=== PATIENT | female | born 1940 | race Caucasian/White ===

== ENCOUNTER 2021-09-07 09:51 | Emergency (ER) | payer MEDICARE ==
[2021-09-07 09:59] VITALS: RESP 18; TEMP 98.4
[2021-09-07] MEDS ORDERED: SODIUM CHLORIDE 0.9% 500 ML 500 ML IV STA (10:10)
--- NOTE | 2021-09-07 10:15 | ED ---
General Adult HPI - General Chief complaint: Nausea/Vomiting/Diarrhea Stated complaint: Diarrhea Time Seen by Provider: 09/07/21 10:05 Source: patient, RN notes reviewed Mode of arrival: ambulatory Limitations: no limitations - History of Present Illness Initial comments: Well-appearing 81-year-old female, alert and oriented 4, presents with complaints of diarrhea that started yesterday. She states that she had multiple episodes, less than 10 yesterday and a couple today. She described it as mucousy, denies any blood or melena. She states it feels like when she had C diff in the past. She denies any nausea or vomiting, no fevers. She describes the abdominal pain as cramping and diffuse. She states that she does smoke marijuana daily. -: days(s) (2) Radiation: abdomen Severity scale (1-10): 0 Quality: other (cramping) Consistency: intermittent, now resolved Associated Symptoms: denies other symptoms Treatments Prior to Arrival: none - Related Data Home Medications Medication Instructions Recorded Confirmed Gabapentin 300 mg PO TID 03/04/20 09/07/21 Allergies Allergy/AdvReac Type Severity Reaction Status Date / Time prochlorperazine edisylate Allergy seizure Verified 09/07/21 12:30 [From Compazine] prochlorperazine maleate Allergy seizure Verified 09/07/21 12:30 [From Compazine] Review of Systems ROS Statement: Those systems with pertinent positive or pertinent negative responses have been documented in the HPI. ROS Other: All systems not noted in ROS Statement are negative. Past Medical History Past Medical History: Diabetes Mellitus, Hypertension, Thyroid Disorder Additional Past Medical History / Comment(s): c-dif History of Any Multi-Drug Resistant Organisms: None Reported Past Surgical History: Back Surgery, Orthopedic Surgery Additional Past Surgical History / Comment(s): lap band, partial thyroidectomy Past Psychological History: No Psychological Hx Reported Smoking Status: Former smoker Past Alcohol Use History: None Reported Past Drug Use History: Marijuana General Exam - General Exam Comments Initial Comments: 81-year-old female presents with diarrhea that started yesterday. Described it as mucousy, denies any blood or melena. She states it feels like when she had C diff in the past. She denies any nausea or vomiting, no fevers. Limitations: no limitations General appearance: alert, in no apparent distress Head exam: Present: atraumatic Eye exam: Present: EOMI ENT exam: Present: mucous membranes moist Neck exam: Present: normal inspection. Absent: tenderness, meningismus Respiratory exam: Present: normal lung sounds bilaterally. Absent: respiratory distress, wheezes, rales, rhonchi, stridor, chest wall tenderness, accessory muscle use Cardiovascular Exam: Present: regular rate, normal heart sounds GI/Abdominal exam: Present: soft, normal bowel sounds. Absent: distended, tenderness, guarding, rebound, rigid Extremities exam: Present: normal capillary refill. Absent: pedal edema Back exam: Present: normal inspection. Absent: tenderness, CVA tenderness (R), CVA tenderness (L), rash noted Neurological exam: Present: alert, oriented X3 Psychiatric exam: Present: normal affect, normal mood Skin exam: Present: warm, dry, normal color. Absent: rash, cyanosis, diaphoretic, pallor Course Vital Signs 09/07/21 09/07/21 09:56 12:00 Temperature 98.4 F Pulse Rate 93 92 Respiratory 18 18 Rate Blood Pressure 125/84 170/94 O2 Sat by Pulse 98 95 Oximetry Medical Decision Making - Medical Decision Making 81-year-old female presents with complaints of diarrhea that started yesterday. Described it as mucousy, denies any blood or melena. She states it feels like when she had C diff in the past. There is no evidence of leukocytosis. Hemoglobin and hematocrit are stable. BUN and creatinine are slightly elevated. Urinalysis is negative for infection C. diff is negative. X-ray shows bilateral nephrolithiasis. Surgical clips from cholecystectomy. Patient continued to have abdominal pain and diarrhea CT was ordered. There are suboptimal assessment pelvic structures related to artifact from the right hip prosthesis Ureterohydronephrosis is noted. There is nonspecific wall thickening of the rectum. Colonic diverticulosis evident within the sigmoid colon. Normal appendix. Patient states that she has several more episodes of diarrhea in the emergency room but no nausea vomiting or fevers. This may be a viral illness and patient was directed to follow up with her primary care doctor next week. Vital signs are stable. Abdomen is soft and minimally tender. She was directed to return to the emergency room with any new or concerning symptoms including increased pain, persistent nausea vomiting or fevers. Case discussed with Dr. Guerra. - Lab Data Result diagrams: 09/07/21 10:34 09/07/21 10:34 Lab Results 09/07/21 09/07/21 09/07/21 Range/Units 10:34 10:34 11:08 WBC 9.8 (3.8-10.6) k/uL RBC 4.30 (3.80-5.40) m/uL Hgb 13.1 (11.4-16.0) gm/dL Hct 40.4 (34.0-46.0) % MCV 93.8 (80.0-100.0) fL MCH 30.5 (25.0-35.0) pg MCHC 32.5 (31.0-37.0) g/dL RDW 13.8 (11.5-15.5) % Plt Count 450 (150-450) k/uL MPV 7.4 Neutrophils % 78 % Lymphocytes % 17 % Monocytes % 2 % Eosinophils % 1 % Basophils % 1 % Neutrophils # 7.7 (1.3-7.7) k/uL Lymphocytes # 1.7 (1.0-4.8) k/uL Monocytes # 0.2 (0-1.0) k/uL Eosinophils # 0.1 (0-0.7) k/uL Basophils # 0.1 (0-0.2) k/uL Sodium 137 (137-145) mmol/L Potassium 4.2 (3.5-5.1) mmol/L Chloride 106 (98-107) mmol/L Carbon Dioxide 23 (22-30) mmol/L Anion Gap 8 mmol/L BUN 18 H (7-17) mg/dL Creatinine 1.23 H (0.52-1.04) mg/dL Est GFR (CKD-EPI)AfAm 48 (>60 ml/min/1.73 sqM) Est GFR (CKD-EPI)NonAf 42 (>60 ml/min/1.73 sqM) Glucose 158 H (74-99) mg/dL Calcium 9.0 (8.4-10.2) mg/dL Total Bilirubin 0.9 (0.2-1.3) mg/dL AST 19 (14-36) U/L ALT 11 (4-34) U/L Alkaline Phosphatase 93 (38-126) U/L Total Protein 7.9 (6.3-8.2) g/dL Albumin 4.2 (3.5-5.0) g/dL Amylase 67 (30-110) U/L Lipase 34 (23-300) U/L Urine Color Urine Appearance (Clear) Urine pH (5.0-8.0) Ur Specific [place] (1.001-1.035) Urine Protein (Negative) Urine Glucose (UA) (Negative) Urine Ketones (Negative) Urine Blood (Negative) Urine Nitrite (Negative) Urine Bilirubin (Negative) Urine Urobilinogen (<2.0) mg/dL Ur Leukocyte Esterase (Negative) Urine RBC (0-5) /hpf Urine WBC (0-5) /hpf Ur Squamous Epith Cells (0-4) /hpf Urine Mucus (None) /hpf C. difficile (EIA) Intrp Negative (Negative) 09/07/21 Range/Units 16:18 WBC (3.8-10.6) k/uL RBC (3.80-5.40) m/uL Hgb (11.4-16.0) gm/dL Hct (34.0-46.0) % MCV (80.0-100.0) fL MCH (25.0-35.0) pg MCHC (31.0-37.0) g/dL RDW (11.5-15.5) % Plt Count (150-450) k/uL MPV Neutrophils % % Lymphocytes % % Monocytes % % Eosinophils % % Basophils % % Neutrophils # (1.3-7.7) k/uL Lymphocytes # (1.0-4.8) k/uL Monocytes # (0-1.0) k/uL Eosinophils # (0-0.7) k/uL Basophils # (0-0.2) k/uL Sodium (137-145) mmol/L Potassium (3.5-5.1) mmol/L Chloride (98-107) mmol/L Carbon Dioxide (22-30) mmol/L Anion Gap mmol/L BUN (7-17) mg/dL Creatinine (0.52-1.04) mg/dL Est GFR (CKD-EPI)AfAm (>60 ml/min/1.73 sqM) Est GFR (CKD-EPI)NonAf (>60 ml/min/1.73 sqM) Glucose (74-99) mg/dL Calcium (8.4-10.2) mg/dL Total Bilirubin (0.2-1.3) mg/dL AST (14-36) U/L ALT (4-34) U/L Alkaline Phosphatase (38-126) U/L Total Protein (6.3-8.2) g/dL Albumin (3.5-5.0) g/dL Amylase (30-110) U/L Lipase (23-300) U/L Urine Color Yellow Urine Appearance Clear (Clear) Urine pH 6.0 (5.0-8.0) Ur Specific [place] 1.016 (1.001-1.035) Urine Protein Trace H (Negative) Urine Glucose (UA) Negative (Negative) Urine Ketones Trace H (Negative) Urine Blood Moderate H (Negative) Urine Nitrite Negative (Negative) Urine Bilirubin Negative (Negative) Urine Urobilinogen <2.0 (<2.0) mg/dL Ur Leukocyte Esterase Negative (Negative) Urine RBC 49 H (0-5) /hpf Urine WBC 1 (0-5) /hpf Ur Squamous Epith Cells <1 (0-4) /hpf Urine Mucus Rare H (None) /hpf C. difficile (EIA) Intrp (Negative) Disposition Clinical Impression: Diarrhea, Elevated serum creatinine Disposition: HOME SELF-CARE Condition: Good Instructions (If sedation given, give patient instructions): Acute Diarrhea (ED) Additional Instructions: Increase your fluid intake. Follow-up with your primary care doctor next week. Notify your doctor that your BUN and creatinine levels were elevated today. Your C. diff test was negative today. Return to the emergency room with any new or concerning symptoms including fevers, increased abdominal pain or persistent vomiting. Is patient prescribed a controlled substance at d/c from ED?: No Referrals: None,Stated [Primary Care Provider] - 1-2 days Time of Disposition: 17:12
[2021-09-07 10:48] LABS: Basophils # (A) 0.1 k/uL (0-0.2); Basophils % (A) 1 %; Eosinophils # (A) 0.1 k/uL (0-0.7); Eosinophils % (A) 1 %; HCT 40.4 % (34.0-46.0); HGB 13.1 gm/dL (11.4-16.0); Lymphocytes # (A) 1.7 k/uL (1.0-4.8); Lymphocytes % (A) 17 %; MCH 30.5 pg (25.0-35.0); MCHC 32.5 g/dL (31.0-37.0); MCV 93.8 fL (80.0-100.0); Mean Platelet Volume 7.4; Monocytes # (A) 0.2 k/uL (0-1.0); Monocytes % (A) 2 %; Neutrophils # (A) 7.7 k/uL (1.3-7.7); Neutrophils % (A) 78 %; Platelet Count 450 k/uL (150-450); RDW 13.8 % (11.5-15.5); WBC 9.8 k/uL (3.8-10.6)
--- NOTE | 2021-09-07 10:55 | XR ---
EXAMINATION TYPE: XR KUB DATE OF EXAM: 09/07/2021 COMPARISON: NONE HISTORY: Pain TECHNIQUE: One view abdominal series FINDINGS: Arthropathy of the left. Vascular calcifications noted. There are multiple punctate calcifications ov erlying both kidneys compatible with renal calculi. Surgical clips in the gallbladder fossa. Hypertro phic and degenerative change of the spine. Postsurgical change right hip with soft tissue ossificatio n seen bilaterally. IMPRESSION: 1. Nonspecific abdomen with no obstruction. 2. Bilateral nephrolithiasis
[2021-09-07 11:00] LABS: Albumin 4.2 g/dL (3.5-5.0); Potassium 4.2 mmol/L (3.5-5.1); Total Bilirubin 0.9 mg/dL (0.2-1.3); Total Protein 7.9 g/dL (6.3-8.2)
--- NOTE | 2021-09-07 13:27 | CT ---
EXAMINATION TYPE: CT abdomen pelvis wo con DATE OF EXAM: 09/07/2021 COMPARISON: No previous abdominal CT scan is available for comparison HISTORY: Lower pelvic pain with bladder leakage CT DLP: 741.8 mGycm Automated exposure control for dose reduction was used. TECHNIQUE: Helical acquisition of images was performed from the lung bases through the pelvis. No IV contrast administration. FINDINGS: LUNG BASES: Mild right posterior basal pulmonary reticulations and minimal fibrotic changes. Cardiome cindy with coronary arterial calcifications. LIVER/GB: Central segment 7 tiny calcifications. No other definite hepatic focal lesion identified by this nonenhanced CT scan. Previous cholecystectomy. PANCREAS: Atrophic with fatty infiltration. SPLEEN: No significant abnormality is seen. ADRENALS: Thickened adrenals, unchanged since 2011 CT chest. KIDNEYS: Large right lower pole renal cyst measuring 6.4 cm without gross suspicious feature. Suspect ed tiny hemorrhagic/proteinaceous cyst at the upper pole of the right kidney measuring 5 mm, suboptim ally assessed by this CT scan. Bilateral renal vascular calcifications. No hydroureter or hydronephro sis. Questionable few millimetric nonobstructing calculi in the left kidney. FREE AIR: No free air is visualized RETROPERITONEAL ADENOPATHY: None visualized REPRODUCTIVE ORGANS: Previous hysterectomy. No gross adnexal mass. URINARY BLADDER: Obscured by artifacts from right hip prosthesis. PELVIC ADENOPATHY: None visualized. OSSEOUS STRUCTURES: Right hip arthroplasty obscuring adjacent pelvic structures. Diffuse osteopenia. Marked degenerative changes at L5-S1 level. Chronic healed fracture at S4-5 segments. BOWEL: Surgical clips are seen at the superior aspect of the gastric fundus, otherwise unremarkable undistended stomach, duodenum and small bowel. Nonspecific wall thickening of the rectum. Colonic div erticulosis most evident involving the sigmoid colon. Sigmoid colon wall thickening, nonspecific. Rec ommend correlation with colonoscopy results. Normal appendix. OTHER: Extensive arterial atherosclerotic calcifications. No sizable ascites. Pelvic fluid or other a bnormality cannot be excluded. Small fat-containing supraumbilical hernia. IMPRESSION: Suboptimal assessment of the pelvic structures including the urinary bladder due to artifacts from th e right hip prosthesis. No hydroureter or hydronephrosis. Other findings as detailed above.
[2021-09-07 13:29] VITALS: BP 170/94; PULSE 92
[2021-09-07 16:47] LABS: Appearance,Urine Clear (Clear); Bilirubin,Urine Negative (Negative); Blood,Urine Moderate (Negative); Color,Urine Yellow; Glucose,Urine (UA) Negative (Negative); Ketones,Urine Trace (Negative); Leukocyte Esterase,Urine Negative (Negative); Mucus,Urine Rare /hpf; Nitrite,Urine Negative (Negative); Protein,Urine Trace (Negative); RBC,Urine 49 /hpf (0-5); Specific Gravity,Urine 1.016 (1.001-1.035); Squamous Epithelial Cell,Urine <1 /hpf (0-4); Urobilinogen,Urine <2.0 mg/dL (<2.0); WBC,Urine 1 /hpf (0-5)
== END 2021-09-07 17:30 | disposition home or self-care (01) ==
LOC: EC 09:51
DX: R19.7 Diarrhea, unspecified (principal); N20.0 Calculus of kidney; E11.9 Type 2 diabetes mellitus without complications; I10 Essential (primary) hypertension; F12.90 Cannabis use, unspecified, uncomplicated; Z87.891 Personal history of nicotine dependence; Z79.899 Other long term (current) drug therapy
CPT/HCPCS: 36415; 74018; 74176; 80053; 81001; 82150; 83690; 85025; 87324; 99284

== ENCOUNTER 2021-12-12 20:15 | Observation (INO) | payer MEDICARE, BC ==
[2021-12-12 20:32] VITALS: RESP 18; TEMP 98.5
[2021-12-13] MEDS ORDERED: SODIUM CHLORIDE 0.9% 1,000 ML IV STA (01:07)
[2021-12-13] MEDS ORDERED: VANCOMYCIN IV PER PHARMACY 1 EACH MISC MISCELLANE PRN (01:07)
[2021-12-13] MEDS ORDERED: NALOXONE 0.4 MG/ML 1 ML VIAL IV PRN (01:09)
[2021-12-13] MEDS ORDERED: ONDANSETRON 4 MG/2 ML VIAL IVP PRN (01:09)
[2021-12-13] MEDS ORDERED: MORPHINE SULFATE 4 MG/ML SYRINGE IV PRN (01:09)
[2021-12-13] MEDS ORDERED: VANCOMYCIN 1,500 MG in SODIUM CHLORIDE 0.9% 250 ML IVPB STA (01:14)
--- NOTE | 2021-12-13 01:14 | ED ---
Skin/Abscess/FB HPI - General Chief complaint: Skin/Abscess/Foreign Body Stated complaint: Infection Left Leg Time Seen by Provider: 12/13/21 00:57 Source: patient, RN notes reviewed, old records reviewed Mode of arrival: wheelchair Limitations: no limitations - History of Present Illness Initial comments: This is a 81-year-old female to the emergency room for evaluation. Patient is today for evaluation of left lower extremity pain and swelling redness and tenderness. Patient of fall downstairs recently with significant hematoma of left leg which tapers has now become painful and draining. Patient is without fever. MD complaint: rash, abscess/boil -: days(s) Location: LLE Severity: moderate Quality: burning, aching Consistency: constant Improves with: none Worsens with: none Context: none (Fall with injury) Associated symptoms: denies other symptoms Treatments Prior to Arrival: bandages - Related Data Home Medications Medication Instructions Recorded Confirmed Gabapentin 300 mg PO TID 03/04/20 09/07/21 Allergies Allergy/AdvReac Type Severity Reaction Status Date / Time prochlorperazine edisylate Allergy seizure Verified 12/12/21 20:31 [From Compazine] prochlorperazine maleate Allergy seizure Verified 12/12/21 20:31 [From Compazine] Review of Systems ROS Statement: Those systems with pertinent positive or pertinent negative responses have been documented in the HPI. ROS Other: All systems not noted in ROS Statement are negative. Past Medical History Past Medical History: Diabetes Mellitus, Hypertension, Thyroid Disorder Additional Past Medical History / Comment(s): c-dif History of Any Multi-Drug Resistant Organisms: None Reported Past Surgical History: Back Surgery, Orthopedic Surgery Additional Past Surgical History / Comment(s): lap band, partial thyroidectomy Past Psychological History: No Psychological Hx Reported Smoking Status: Former smoker Past Alcohol Use History: None Reported Past Drug Use History: Marijuana General Exam Limitations: no limitations General appearance: alert, in no apparent distress Head exam: Present: atraumatic, normocephalic, normal inspection Eye exam: Present: normal appearance, PERRL, EOMI. Absent: scleral icterus, conjunctival injection, periorbital swelling ENT exam: Present: normal exam, mucous membranes moist Neck exam: Present: normal inspection. Absent: tenderness, meningismus, lymphadenopathy Respiratory exam: Present: normal lung sounds bilaterally. Absent: respiratory distress, wheezes, rales, rhonchi, stridor Cardiovascular Exam: Present: regular rate, normal rhythm, normal heart sounds. Absent: systolic murmur, diastolic murmur, rubs, gallop, clicks GI/Abdominal exam: Present: soft, normal bowel sounds. Absent: distended, tenderness, guarding, rebound, rigid Extremities exam: Present: normal inspection, full ROM, normal capillary refill. Absent: tenderness, pedal edema, joint swelling, calf tenderness Back exam: Present: normal inspection Neurological exam: Present: alert, oriented X3, CN II-XII intact Psychiatric exam: Present: normal affect, normal mood Skin exam: Present: warm, dry, intact, normal color. Absent: rash Course Vital Signs 12/12/21 20:28 Temperature 98.5 F Pulse Rate 73 Respiratory 18 Rate Blood Pressure 148/64 O2 Sat by Pulse 99 Oximetry - Reevaluation(s) Reevaluation #1: 12/13/21 01:13 Medical record is reviewed Reevaluation #2: 12/13/21 01:13 Patient no significant distress or pain Reevaluation #3: 12/13/21 01:13 Patient informed results and questions answered - Consultations Consultation #1: Spoke with sound physicians will admit this patient Medical Decision Making - Medical Decision Making 81 female will be admitted for significant cellulitis related to hematoma trauma the left lower extremity. Patient will be admitted for wound care and IV antibiotics Disposition Clinical Impression: Left leg cellulitis, Hematoma of left lower leg, Fall Disposition: ADMITTED IP TO THIS HOSP Condition: Good Is patient prescribed a controlled substance at d/c from ED?: No Referrals: None,Stated [Primary Care Provider] - 1-2 days
--- NOTE | 2021-12-13 02:32 | XR ---
EXAM: XR Left Tibia and Fibula, 2 Views CLINICAL HISTORY: ITS.REASON XR Reason: pain TECHNIQUE: Frontal and lateral views of the left tibia and fibula. COMPARISON: None FINDINGS: Bones/joints: No displaced fracture or dislocation identified. Left knee arthroplasty without evidence of hardware complication. Soft tissues: Diffuse prominent soft tissue swelling. Probable soft tissue wound along the lateral mid left lower leg. No radiopaque foreign body. IMPRESSION: 1. No displaced fracture or dislocation identified. 2. Diffuse prominent soft tissue swelling. Probable soft tissue wound along the lateral mid left lower leg.
[2021-12-13 04:47] LABS: Basophils # (A) 0.1 k/uL (0-0.2); Basophils % (A) 1 %; Eosinophils # (A) 0.3 k/uL (0-0.7); Eosinophils % (A) 3 %; HCT 36.9 % (34.0-46.0); HGB 11.8 gm/dL (11.4-16.0); Lymphocytes # (A) 2.7 k/uL (1.0-4.8); Lymphocytes % (A) 27 %; MCH 30.7 pg (25.0-35.0); MCHC 31.9 g/dL (31.0-37.0); MCV 96.2 fL (80.0-100.0); Mean Platelet Volume 8.1; Monocytes # (A) 0.3 k/uL (0-1.0); Monocytes % (A) 3 %; Neutrophils # (A) 6.3 k/uL (1.3-7.7); Neutrophils % (A) 64 %; Platelet Count 452 k/uL (150-450); RBC 3.83 m/uL (3.80-5.40); RDW 13.7 % (11.5-15.5); WBC 9.9 k/uL (3.8-10.6)
[2021-12-13 05:01] LABS: Calcium 8.8 mg/dL (8.4-10.2); Magnesium 2.1 mg/dL (1.6-2.3); Phosphorus 3.7 mg/dL (2.5-4.5); Potassium 4.2 mmol/L (3.5-5.1); Total Bilirubin 0.4 mg/dL (0.2-1.3)
[2021-12-13 05:04] LABS: INR 0.9 (<1.2); Prothrombin Time 9.9 sec (9.0-12.0)
--- NOTE | 2021-12-13 09:31 | P.CONS ---
History of Present Illness - Reason for Consult Consult date: 12/13/21 wound care - History of Present Illness Is a 81-year-old patient being seen in the ER for a open ulceration to the left lower extremity lateral aspect. Patient had suffered a fall a few weeks ago and the hematoma open up resulting in blood draining down her leg. Patient was seen in the urgent care Center who told her to come to the ER for possible surgery. Patient has a eschar cap in place with congealed blood hematoma and nonviable tissue. The ulceration is measuring approximately 4 x 4 x 0.4 cm with fat layer exposure, no granulation noted within the wound bed. No tunneling or undermining noted.. The wound edges are attached to the wound base. Minimal edema noted to the periwound. X-ray showed no fracture. Patient past medical history significant for diabetes, hypertension, hyperthyroidism. Patient is a former smoker. Review Of Systems: Constitutional: No fever, no chills, no night sweats. No weight change. No weakness, fatigue or lethargy. No daytime sleepiness. Integumentary:reports wounds, no lesions. No rash or pruritus. No unusual bruising. No change in hair or nails. Physical exam: General Appearance: Alert, cooperative, no distress, appears stated age. Skin: See HPI all other Skin color, texture, tugor normal, no rashes or lesions. Neurologic: Alert oriented x3 Plan: 1. Nonhealing ulceration with fatty layer exposure of the left calf 2. Diabetes with skin ulceration 3. Hematoma Assessment: 1.Left lateral lower extremity: Apply absorptive silver moisten, dry gauze, ro lled gauze and secure with tape. Wrap with bobbi wrap for compression. 2. Patient will benefit from advanced wound care and wound care center. Please call to set up an appointment for next week.. 3. Please initiate home care for dressing changes and for supplies. Thank you for the consultation please contact the wound care center if any questions DNP note has been reviewed and discussed with Dr. Wolff and the impression and plan of care has been directed as dictated. Past Medical History Past Medical History: Diabetes Mellitus, Hypertension, Thyroid Disorder Additional Past Medical History / Comment(s): c-dif History of Any Multi-Drug Resistant Organisms: None Reported Past Surgical History: Back Surgery, Orthopedic Surgery Additional Past Surgical History / Comment(s): lap band, partial thyroidectomy Past Psychological History: No Psychological Hx Reported Smoking Status: Former smoker Past Alcohol Use History: None Reported Past Drug Use History: Marijuana Medications and Allergies Home Medications Medication Instructions Recorded Confirmed Type Gabapentin 300 mg PO TID 03/04/20 12/13/21 History Allergies Allergy/AdvReac Type Severity Reaction Status Date / Time prochlorperazine edisylate Allergy seizure Verified 12/13/21 07:58 [From Compazine] prochlorperazine maleate Allergy seizure Verified 12/13/21 07:58 [From Compazine] Physical Exam Vitals: Vital Signs Temp Pulse Resp BP Pulse Ox 12/13/21 08:08 98.5 F 89 18 162/79 98 12/13/21 06:21 78 18 177/100 98 12/12/21 20:28 98.5 F 73 18 148/64 99 Intake and Output 12/12/21 12/13/21 12/13/21 22:59 06:59 14:59 Output Total 200 Balance -200 Output: Urine 200 Other: # Bowel Movements 1 Weight 80.739 kg Results CBC & Chem 7: 12/13/21 03:50 12/13/21 03:50 Labs: Abnormal Lab Results - Last 24 Hours (Table) 12/13/21 12/13/21 Range/Units 03:50 03:50 Plt Count 452 H (150-450) k/uL BUN 25 H (7-17) mg/dL Creatinine 1.25 H (0.52-1.04) mg/dL Assessment and Plan (1) Non-pressure chronic ulcer of left calf with fat layer exposed Current Visit: Yes Status: Acute Code(s): L97.222 - NON-PRESSURE CHRONIC ULCER OF LEFT CALF W FAT LAYER EXPOSED SNOMED Code(s): 59916272675643890 (2) Diabetes with skin ulcer Current Visit: Yes Status: Acute Code(s): E11.622 - TYPE 2 DIABETES MELLITUS WITH OTHER SKIN ULCER; L98.499 - NON-PRESSURE CHRONIC ULCER OF SKIN OF SITES W UNSP SEVERITY SNOMED Code(s): 36702648 (3) Hematoma of left lower leg Current Visit: Yes Status: Acute Code(s): S80.12XA - CONTUSION OF LEFT LOWER LEG, INITIAL ENCOUNTER SNOMED Code(s): 53443081335464851
--- NOTE | 2021-12-13 09:35 | P.PCN ---
Date of Procedure: 12/13/21 Preoperative Diagnosis: Nonpressure ulceration of left lower calf with fat layer exposure Postoperative Diagnosis: Same Procedure(s) Performed: Provider: Hanna Pre-and postop diagnosis: [Nonhealing ulceration left lower calf with fat layer exposure ] Type of debridement: Open Ulcer location[ left lower extremity lateral aspect ] Anesthesia: [None] Signs of infection: [Minimal redness] Other material in the wound that is expected to inhibit healing or promote adjacent tissue breakdown:[ Eschar, hematoma, congealed blood, nonviable tissue] Degree of epithelialization: [10 %] Method and instrument: Surgical debridement with [ scissors] Character of the wound after debridement: [ Minimal granulation with Slough] Necrotic or nonviable tissue/ Description of tissue removed: [Eschar, congealed blood, nonviable tissue] Pre-debridement measurement: [ 4 x 4 x 0.1 cm] Postoperative debridement measurement:[ 4.2 x 4.1 x 0.4 cm ] Control of bleeding:[Bleeding was easily controlled with saline moistened gauze and light pressure] Post debridement dressing:[ Absorptive silver] [Patient tolerated procedure well]
--- NOTE | 2021-12-13 11:41 | P.HPIM ---
History of Present Illness H&P Date: 12/13/21 Chief Complaint: Left lower extremity wound Patient is a 81-year-old female with a past medical history of neuropathy and C. diff who was sent from the urgent care clinic for evaluation of left lower extremity wound. Patient states that 2 weeks ago she fell down the stairs. She states that she had lost her balance which made her fall. She states that she hit her left lower extremity as well as her head. Patient states that initially there was a bruise on her left lower extremity and then yesterday she noticed that there is an opening in her skin and blood was coming out. Her son then took her to urgent care who then referred her to come to the ED. While I was in the room patient was being seen by the wound care nurse. Wound care nurse gave recommendations for the wound management and instructed patient and son that patient needs to follow up in the wound care clinic next week. There was no surrounding cellulitis so no need for antibiotics at this time. I discussed with child support case officer to set up home care as well as home PT OT. Son was also in the room who states that they just moved from [place] and that last year patient has been seeing doctors in [place] and she was checked for diabetes which was negative. Patient states that she is only taking gabapentin by a doctor at [facility]. Review of Systems 10 ROS reviewed and are negative except as noted in HPI Past Medical History Past Medical History: Diabetes Mellitus, Hypertension, Thyroid Disorder Additional Past Medical History / Comment(s): c-dif History of Any Multi-Drug Resistant Organisms: None Reported Past Surgical History: Back Surgery, Orthopedic Surgery Additional Past Surgical History / Comment(s): lap band, partial thyroidectomy Past Psychological History: No Psychological Hx Reported Smoking Status: Former smoker Past Alcohol Use History: None Reported Past Drug Use History: Marijuana Medications and Allergies Home Medications Medication Instructions Recorded Confirmed Type Gabapentin 300 mg PO TID 03/04/20 12/13/21 History Allergies Allergy/AdvReac Type Severity Reaction Status Date / Time prochlorperazine edisylate Allergy seizure Verified 12/13/21 07:58 [From Compazine] prochlorperazine maleate Allergy seizure Verified 12/13/21 07:58 [From Compazine] Physical Exam Osteopathic Statement: *. No significant issues noted on an osteopathic structural exam other than those noted in the History and Physical/Consult. Vitals: Vital Signs Temp Pulse Resp BP Pulse Ox 12/13/21 10:29 86 18 182/88 97 12/13/21 08:08 98.5 F 89 18 162/79 98 12/13/21 06:21 78 18 177/100 98 12/12/21 20:28 98.5 F 73 18 148/64 99 Intake and Output 12/12/21 12/13/21 12/13/21 22:59 06:59 14:59 Output Total 200 Balance -200 Output: Urine 200 Other: # Bowel Movements 1 Weight 80.739 kg General: [Alert and oriented, well nourished, no acute distress]. Eye: [PERRL, EOMI, normal conjunctiva]. HENT: [Normocephalic, clear tympanic membranes, normal hearing, moist oral mucosa, no scleral icterus, no sinus tenderness]. Neck: [Supple, non-tender, no carotid bruits, no JVD, no lymphadenopathy]. Lungs: [Clear to auscultation and percussion, non-labored respiration]. Heart: [Normal rate, regular rhythm, no murmur, gallop or edema]. Abdomen: [Soft, non-tender, non-distended, normal bowel sounds, no masses]. Musculoskeletal: [Normal range of motion and strength, no tenderness or swelling]. Skin: [Nonhealing left lower extremity wound that is about 3 x 3 cm with no pu rulent drainage or surrounding cellulitis]. Neurologic: [Awake, alert, and oriented X3, CN II-XII intact]. Psychiatric: [Cooperative, appropriate mood and affect]. 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 -Patient is stable for discharge and will need to wound care clinic -No signs of infection so we'll discontinue antibiotics -Resume gabapentin on discharge -residential worker consult for PT OT and home care CODE STATUS:full code DVT prophylaxis: mechanical Discussed with: Patient, ER, rn Anticipated length of stay < than [address]: home A total of 50 minutes was spent on the care of this complex patient more than 50% of the time was spent in counseling and care coordination.
--- NOTE | 2021-12-13 11:45 | P.DS ---
Providers Date of admission: 12/13/21 01:09 Expected date of discharge: 12/13/21 Attending physician: Cali Rivera MD Primary care physician: Stated None Hospital Course: Discharge Diagnosis: Nonhealing ulceration with fatty layer exposure of the left calf Hematoma of the left lower extremity Hematoma on the scalp Neuropathy Hospital Course: Patient is a 81-year-old female with a past medical history of neuropathy and C. diff who was sent from the urgent care clinic for evaluation of left lower extremity wound. Patient states that 2 weeks ago she fell down the stairs. She states that she had lost her balance which made her fall. She states that she hit her left lower extremity as well as her head. Patient states that initially there was a bruise on her left lower extremity and then yesterday she noticed that there is an opening in her skin and blood was coming out. Her son then took her to urgent care who then referred her to come to the ED. While I was in the room patient was being seen by the wound care nurse. Wound care nurse gave recommendations for the wound management and instructed patient and son that patient needs to follow up in the wound care clinic next week. There was no surrounding cellulitis so no need for antibiotics at this time. I discussed with leather case finisher to set up home care as well as home PT OT. Son was also in the room who states that they just moved from [place] and that last year patient has been seeing doctors in [place] and she was checked for diabetes which was negative. Patient states that she is only taking gabapentin by a doctor at [facility]. Please see my H&P for physical exam A total of [33] minutes of time were spent preparing this complex discharge summary . Patient Condition at Discharge: Good Plan - Discharge Summary New Discharge Prescriptions: Continue Gabapentin 300 mg PO TID Discharge Medication List Gabapentin 300 mg PO TID 03/04/20 [History] Follow up Appointment(s)/Referral(s): [facility] [NON-STAFF] - 1-2 Days None,St[facility] [Primary Care Provider] - 1-2 days [facility] [NON-STAFF] - 12/22/21 8:00 am (Appointment must be kept for home care to continue.) Discharge Disposition: HOME WITH HOME HEALTH SERVICES Care Plan Goals (MU): Apply absorptive silver moisten, dry gauze, rolled gauze and secure with tape. Wrap with bobbi wrap for compression.
[2021-12-13 13:11] VITALS: BP 143/80; PULSE 90
[2021-12-14] MEDS ORDERED: VANCOMYCIN 1,500 MG in SODIUM CHLORIDE 0.9% 250 ML IVPB SCH (06:00)
== END 2021-12-13 13:19 | disposition home health service (06) ==
LOC: EC 20:15 → 6NMEDSUR 12-13 01:09
PROVIDERS: ADMIT Internal Medicine; ATTEND Internal Medicine
DX: E11.622 Type 2 diabetes mellitus with other skin ulcer (principal); L97.222 Non-pressure chronic ulcer of left calf with fat layer exposed; S80.12XA Contusion of left lower leg, initial encounter; S00.03XA Contusion of scalp, initial encounter; E11.40 Type 2 diabetes mellitus with diabetic neuropathy, unspecified; I10 Essential (primary) hypertension; E89.0 Postprocedural hypothyroidism; W10.9XXA Fall (on) (from) unspecified stairs and steps, initial encounter; Z79.899 Other long term (current) drug therapy; Z88.8 Allergy status to other drugs, medicaments and biological substances; Z98.84 Bariatric surgery status; Z87.891 Personal history of nicotine dependence; Z86.19 Personal history of other infectious and parasitic diseases; Z96.652 Presence of left artificial knee joint; Z98.890 Other specified postprocedural states
CPT/HCPCS: 96368; 96365; 96366; 99284; 80053; 83735; 84100; 84484; 85025; 85610; 85730; 87040; 73590; 11042; G0378; J3370; J0696